=== PATIENT | male | born 1945 | race Hispanic/Latino ===

== ENCOUNTER 2017-09-08 06:16 | Day surgery (SDC) | payer MEDICARE, OTHER ==
[~2017-09-08] VITALS: Ht 160 cm; Wt 76.2 kg
[~2017-09-08 06:16] MED LIST: AMIO200T5 PO; ATOR20TA65 PO; CARV12.511 PO; CLOP75TA32 PO; CREON12 PO; FAMO40TA7 PO; FURO40TA5 PO; MELA3TAB PO; SACU1TAB7 PO; SPIR25TA6 PO
[2017-09-08] MEDS ORDERED: SODIUM CHLORIDE 0.9% 1000ML 1,000 ML IV ONE (06:30)
[2017-09-08 06:50] VITALS: BP 116/65
[2017-09-08] MEDS ORDERED: KETAMINE HCL 100 MG/ML 5ML VIAL IJ ONE (09:26)
[2017-09-08] MEDS ORDERED: MIDAZOLAM HCL 1 MG/ML 2ML VIAL ONE (09:26)
== END 2017-09-08 10:15 | disposition home or self-care (01) ==
LOC: ENDO 06:16 → DAH 06:16 → ENDO 10:15
PROVIDERS: ATTEND Internal Medicine
DX: K85.00 Idiopathic acute pancreatitis without necrosis or infection (principal); E78.00 Pure hypercholesterolemia, unspecified; I25.10 Atherosclerotic heart disease of native coronary artery without angina pectoris; I11.0 Hypertensive heart disease with heart failure; I50.9 Heart failure, unspecified; F41.8 Other specified anxiety disorders; K21.9 Gastro-esophageal reflux disease without esophagitis; Z90.49 Acquired absence of other specified parts of digestive tract; Z95.5 Presence of coronary angioplasty implant and graft; Z95.810 Presence of automatic (implantable) cardiac defibrillator; Z98.890 Other specified postprocedural states; Z79.84 Long term (current) use of oral hypoglycemic drugs; Z79.899 Other long term (current) drug therapy; Z53.8 Procedure and treatment not carried out for other reasons
CPT/HCPCS: 82948 ×2; 93005; A4606; J2250; J7030; J3490